=== PATIENT | female | born 1945 | race Caucasian/White ===

== ENCOUNTER 2023-05-05 15:09 | Emergency (ER) | payer MEDICARE, BC, SELFPAY ==
[2023-05-05 15:32] VITALS: BP 189/74; PULSE 78; RESP 18; TEMP 36.6; O2SAT 98; BMI 29.1
--- NOTE | 2023-05-05 15:39 | DI.RAD.S_ITS ---
PROCEDURE: XR WRIST LT MIN 3V INDICATIONS: fall/pain TECHNIQUE: 4 views of the wrist were acquired. COMPARISON: None. FINDINGS: Bones: No fractures or dislocations. No suspicious bony lesions. Ulnar negative variant noted. 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 Scaphoid view: Scaphoid is intact. Soft tissues: No suspicious soft tissue calcifications. IMPRESSION: No fracture. No acute osseous lesion. If symptoms and/or clinical suspicion for pathology persists, further assessment with repeat radiographs (7-10 days) or advanced imaging (e.g. CT, MRI or bone scan) should be considered. Dictated by: Jodie Valles MD, PhD on 05/05/2023 at 15:56 Approved by: Jodie Valles MD, PhD on 05/05/2023 at 15:57
--- NOTE | 2023-05-05 15:39 | DI.CT.S_ITS ---
PROCEDURE: CT CERVICAL SPINE WO CON INDICATIONS: fall/pain TECHNIQUE: Noncontrast 3 mm thick sections acquired from the skull base to the T4 level. Sagittal and coronal reformats were then constructed. For radiation dose reduction, the following was used: automated exposure control, adjustment of mA and/or kV according to patient size. COMPARISON: None. FINDINGS: Image quality: Excellent. Bones: No fractures or dislocations. There is grade 1 anterolisthesis of C2 on C3. Degenerative disc disease, [id number] at C4-C5, C5-C6 and C6-C7. Bilateral facet arthropathy in cervical spine, most pronounced at C2-C3 and C3-C4 on the right. Visualized superior ribs are intact. Soft tissues: Prevertebral soft tissues are normal in thickness. No paravertebral hematomas. No apical pneumothoraces. IMPRESSION: 1. No cervical spine fractures. 2. Degenerative changes as described. Dictated by: Marisela Soliman M.D. on 05/05/2023 at 16:11 Approved by: Marisela Soliman M.D. on 05/05/2023 at 16:14
--- NOTE | 2023-05-05 15:39 | DI.CT.S_ITS ---
PROCEDURE: CT HEAD/BRAIN WO CON INDICATIONS: fall/pain TECHNIQUE: Noncontrast 4.5 mm thick angled axial sections acquired from the foramen magnum to the vertex, with coronal and sagittal reformats. For radiation dose reduction, the following was used: automated exposure control, adjustment of mA and/or kV according to patient size. COMPARISON: None. FINDINGS: Image quality: Excellent. CSF spaces: Basal cisterns are patent. No extra-axial fluid collections. The ventricles are symmetric in size and shape. Brain: No intracranial bleeds or masses. There is moderate cerebral volume loss for age, with resultant ventricular and sulcal prominence. There are mild periventricular and deep white matter chronic small vessel ischemic changes. There is intracranial internal carotid artery atherosclerosis. Skull and face: Calvarium and visualized facial bones appear intact, without suspicious lesions. Sinuses: Visualized sinuses and mastoids are clear. IMPRESSION: 1. No acute intracranial abnormalities. 2. Cerebral volume loss and chronic microvascular ischemic changes. Dictated by: Marisela Soliman M.D. on 05/05/2023 at 15:59 Approved by: Marisela Soliman M.D. on 05/05/2023 at 16:01
--- NOTE | 2023-05-05 17:14 | ED.HEATRA ---
HPI - Head Injury <Mendy Worley PA-C - Last Filed: 05/05/23 18:29> General Chief complaint: Head Injury Stated complaint: fall, head injury, no thinners Time Seen by Provider: 05/05/23 17:12 Source: patient Mode of arrival: Ambulatory History of Present Illness HPI Narrative: 77-year-old female presents to the ED status post a mechanical fall sustained 48 hours prior to arrival. Patient states [place] in the [place], did not notice a tree root, she tripped on it and fell forward. Patient sustained a wound on her left brow. Patient is not on blood thinners. No loss of consciousness. Patient complains of a generalized headache and some left wrist pain. Patient denies chest pain, shortness of breath, lightheadedness, dizziness, syncope. Patient denies numbness, tingling, weakness. Related Data Allergies Allergy/AdvReac Type Severity Reaction Status Date / Time azithromycin [From Zithromax] Allergy Vomiting Verified 05/05/23 15:32 Review of Systems <Mendy Worley PA-C - Last Filed: 05/05/23 18:29> Review of Systems ROS Unobtainable: All systems reviewed & are unremarkable except as noted in HPI and below Constitutional Constitutional: Denies chills, Denies fatigue, Denies fever(s), Denies frequent falls, Reports headache(s), Denies lethargy and Denies weakness Eyes Eyes: Denies change in vision, Denies eye discharge, Denies irritation and Denies loss of vision ENT Ears, Nose, Mouth, and Throat: Denies change in voice, Denies dizziness, Reports headache(s), Denies neck pain, Denies sore throat and Denies throat swelling Cardiovascular Cardiovascular: Denies chest pain, Denies irregular heart rhythm, Denies lightheadedness, Denies palpitations, Denies dyspnea, Denies dyspnea on exertion and Denies orthopnea Respiratory Respiratory: Denies cough, Denies dyspnea, Denies dyspnea on exertion and Denies wheezing Gastrointestinal Gastrointestinal: Denies abdominal pain, Denies change in bowel habits, Denies diarrhea, Denies nausea and Denies vomiting Genitourinary Genitourinary: Denies hematuria, Denies flank pain, Denies urinary incontinence and Denies urinary urgency Musculoskeletal Musculoskeletal: Denies back pain, Denies muscle weakness, Denies neck pain, Denies numbness and Denies tingling Integumentary/Breasts Skin/Breast: Denies pruritus, Denies erythema, Denies rash and Reports wounds Neurologic Neurologic: Denies behavioral changes, Denies confusion, Denies dizziness, Denies frequent falls, Reports headache(s), Denies loss of vision, Denies numbness, Denies tingling and Denies weakness Psychiatric Psychiatric: Denies anxiety, Denies behavioral changes, Denies confusion, Denies depression, Denies homicidal ideation and Denies suicidal ideation Endocrine Endocrine: Denies fatigue, Denies flushing and Denies palpitations Hematologic/Lymphatic Hematologic/Lymphatic: Denies easy bruising Allergic/Immunologic Allergic/Immunologic: Denies urticaria, Denies throat swelling and Denies wheezing Patient History <Mendy Worley PA-C - Last Filed: 05/05/23 18:29> Social History Smoking Status: Never smoker Smoking Status: Never smoker alcohol intake frequency: holidays/special occasions only Substance Use Type: does not use Exam <Mendy Worley PA-C - Last Filed: 05/05/23 18:29> Narrative Exam Narrative: Const General:?cooperative, healthy appearing and comfortable [facility] Head:? Small left brow wound, which appears to be healing well without signs of infection. No hematoma, skull depressions. Ears:?hearing grossly normal bilaterally Nose:?external nose normal Face and sinus:?normal facial exam and sinuses nontender Mouth:?oral mucosae normal Throat:?posterior oropharynx normal Eyes General:?appearance normal, both eyes and all related structures Neck Neck:?normal visual inspection and no lymphadenopathy noted Resp Effort & Inspection:?normal respiratory effort Auscultation:?clear to auscultation bilaterally Cardio Rate:?regular rate Rhythm:?regular rhythm Neuro General:?patient alert, patient awake and patient oriented x3 Initial Vital Signs Initial Vital Signs: Vital Signs Temperature 98 F 05/05/23 15:32 Pulse Rate 78 05/05/23 15:32 Respiratory Rate 18 05/05/23 15:32 Blood Pressure 189/74 H 05/05/23 15:32 Pulse Oximetry 98 05/05/23 15:32 Oxygen Delivery Method Room Air 05/05/23 15:32 <Kylah Kearney DO - Last Filed: 05/05/23 19:25> Initial Vital Signs Initial Vital Signs: Vital Signs Temperature 98 F 05/05/23 15:32 Pulse Rate 78 05/05/23 15:32 Respiratory Rate 18 05/05/23 15:32 Blood Pressure 189/74 H 05/05/23 15:32 Pulse Oximetry 98 05/05/23 15:32 Oxygen Delivery Method Room Air 05/05/23 15:32 Course <Mendy Worley PA-C - Last Filed: 05/05/23 18:29> Orders Ordered: ED Orders 05/05/23 15:39 CT cervical spine wo con Stat CT head/brain wo con Stat XR wrist LT min 3V Stat Vital Signs Vital signs: Vital Signs - 8 hr 05/05/23 15:32 05/05/23 17:59 Temperature 98 F Pulse Rate 78 76 Respiratory Rate 18 16 Blood Pressure 189/74 H 172/86 H Pulse Oximetry 98 98 Oxygen Delivery Method Room Air Room Air <DO Cari Fraser Last Filed: 05/05/23 19:25> Orders Ordered: ED Orders 05/05/23 15:39 CT cervical spine wo con Stat CT head/brain wo con Stat XR wrist LT min 3V Stat Vital Signs Vital signs: Vital Signs - 8 hr 05/05/23 15:32 05/05/23 17:59 Temperature 98 F Pulse Rate 78 76 Respiratory Rate 18 16 Blood Pressure 189/74 H 172/86 H Pulse Oximetry 98 98 Oxygen Delivery Method Room Air Room Air MDM - Head Injury <LEAH Brown Last Filed: 05/05/23 18:29> MDM Narrative Medical decision making narrative: 77-year-old female presents to the ED status post a mechanical fall sustained 48 hours prior to arrival. Obtained CT head, CT C-spine, wrist x-ray. No abnormalities on imaging. Patient's wound appears to be healing well without signs of infection. Tetanus is up-to-date. Wound care instructions and signs of infection discussed with patient. Patient agrees to return to ED if any signs of infection noted. Recommend follow-up with PCP. Medical records reviewed: Yes Discharge Plan Departure Patient Disposition: Home Clinical Impression: Head injury Instructions: Closed Head Injury Activity Restrictions/Additional Instructions: You were evaluated in the ED today for a fall and head injury. Your CT head, CT C-spine and wrist x-ray were normal. You may keep your wound clean and dry. It is okay to apply an antibiotic ointment on it. Please watch for signs of infection including worsening redness, swelling, pain, warmth, discharge. Return to the ED if you note signs of infection. Please follow-up with your PCP as soon as possible. Stand Alone Forms: Patient Portal/API <Kylah Kearney DO - Last Filed: 05/05/23 19:25> Cosign ED Attending Spenser Attestation: I was immediately available in the department for consultation. Documentation has been reviewed.
--- NOTE | 2023-05-05 17:52 | PC.NURSE ---
small wound amove left eyebrow, appears moist secondary to triple antibiotic ointment and bandage that patient states she had placed on eye after cleaning with alcohol after injury. Bruising and swelling noted to left eye and left wrist. Patient able to open and close mouth with no difficulty chewing. Good CMS in left wrist.
[2023-05-05 17:59] VITALS: BP 172/86; PULSE 76; RESP 16; O2SAT 98
== END 2023-05-05 17:59 | disposition home or self-care (01) ==
PROVIDERS: Emergency Provider Student in an Organized Health Care Education/Training Program
DX: S09.90XA Unspecified injury of head, initial encounter (principal); M54.2 Cervicalgia; M25.532 Pain in left wrist; W18.30XA Fall on same level, unspecified, initial encounter
CPT/HCPCS: 70450; 72125; 73110; 99281; 99284